=== PATIENT | male | born 1950 | race Hispanic/Latino ===

== ENCOUNTER 2017-10-08 16:18 | Emergency (ER) | payer OTHER, MEDICARE | END 2017-10-08 17:53 | disposition home or self-care (01) | LOC: EDH 16:18 | DX: L03.011 Cellulitis of right finger (principal); M10.9 Gout, unspecified | CPT/HCPCS: 10060; 26010 ==

== ENCOUNTER 2019-09-13 15:34 | Emergency (ER) | payer MEDICARE, OTHER ==
[2019-09-13] MEDS ORDERED: ACETAMINOPHEN EXTRA STRENGTH 500 MG TABLET ONE (16:48)
[2019-09-13 17:00] LABS: BASOPHILS % (AUTO) 0.8 % (0.0-5.0); EOSINOPHILS % (AUTO) 1.3 % (0.0-8.0); HEMATOCRIT 44.1 % (42-54); LYMPHOCYTES % (AUTO) 24.5 % (21.0-51.0); MEAN CORPUSCULAR HEMOGLOBIN 28.5 pg (27.0-33.0); MEAN CORPUSCULAR HGB CONC 33.1 g/dL (32.0-36.0); MEAN CORPUSCULAR VOLUME 86.1 fL (79-99); MONOCYTES % (AUTO) 7.3 % (3.0-13.0); NEUTROPHILS % (AUTO) 65.3 % (40.0-77.0); PLATELET COUNT (AUTO) 233 K/uL (130-400); RED BLOOD CELL COUNT(AUTO) 5.12 MIL/uL (4.50-6.20); RED CELL DISTRIBUTION WIDTH 12.7 % (11.0-15.5); WHITE BLOOD COUNT (AUTO) 7.1 K/uL (4.8-10.8)
[2019-09-13 17:07] LABS: CREATININE 1.3 mg/dL (0.5-1.5)
[2019-09-13 17:08] LABS: INR 0.93 (0.85-1.15); PARTIAL THROMBOPLASTIN TIME 25.7 SEC (26.3-35.5); PROTHROMBIN TIME 9.8 SEC (9.6-11.6)
[2019-09-13 17:14] LABS: BILIRUBIN,TOTAL 0.4 mg/dL (0.2-1.0); TOTAL PROTEIN, SERUM 8.4 g/dL (6.0-8.3)
== END 2019-09-13 18:35 | disposition home or self-care (01) ==
LOC: EDH 15:34
DX: R07.89 Other chest pain (principal); M25.552 Pain in left hip; R51 Headache; R10.9 Unspecified abdominal pain; E11.9 Type 2 diabetes mellitus without complications; V49.49XA Driver injured in collision with other motor vehicles in traffic accident, initial encounter; Y93.89 Activity, other specified; Y92.89 Other specified places as the place of occurrence of the external cause; Y99.8 Other external cause status
CPT/HCPCS: 36415; 71250; 74176; 80053; 85025; 85610; 85730

== ENCOUNTER → 2021-01-15 | Outpatient (CLI) | payer OTHER ==
[2021-01-15 12:32] LABS: CREATININE 0.9 mg/dL (0.5-1.5); POTASSIUM 4.7 mmol/L (3.5-5.1)
== END | disposition home or self-care (01) ==
LOC: LAB 11:26
PROVIDERS: ATTEND Urology Pediatric Urology
DX: C61 Malignant neoplasm of prostate (principal)
CPT/HCPCS: 36415; 80048

== ENCOUNTER → 2021-01-21 | Outpatient (CLI) | payer OTHER | END | disposition home or self-care (01) | LOC: OIH 07:47 | PROVIDERS: ATTEND Urology Pediatric Urology | DX: C61 Malignant neoplasm of prostate (principal); I70.0 Atherosclerosis of aorta; K57.90 Diverticulosis of intestine, part unspecified, without perforation or abscess without bleeding; N32.89 Other specified disorders of bladder | CPT/HCPCS: 74178 ==

== ENCOUNTER → 2021-01-27 | Outpatient (CLI) | payer OTHER | END | disposition home or self-care (01) | LOC: RAH 12:49 | PROVIDERS: ATTEND Urology Pediatric Urology | DX: C61 Malignant neoplasm of prostate (principal); M24.812 Other specific joint derangements of left shoulder, not elsewhere classified; M24.811 Other specific joint derangements of right shoulder, not elsewhere classified; M23.8X2 Other internal derangements of left knee; M23.8X1 Other internal derangements of right knee; M24.871 Other specific joint derangements of right ankle, not elsewhere classified; M24.872 Other specific joint derangements of left ankle, not elsewhere classified | CPT/HCPCS: 78306; A9503 ==